=== PATIENT | female | born 1990 | race Hispanic/Latino ===

== ENCOUNTER 2023-07-01 06:22 | Day surgery (SDC) | payer MEDICAID ==
[2023-06-30 14:58] VITALS: BP 113/60; PULSE 72; RESP 18
[~2023-07-01] VITALS: Ht 162.6 cm; Wt 123.2 kg
[~2023-07-01 06:22] MED LIST: FAMO40TA7 PO; LISI5TAB21 PO; URSO250T12 PO
[2023-07-01 06:50] VITALS: BP 113/69; PULSE 67; RESP 17
[2023-07-01] MEDS ORDERED: PROPOFOL 10 MG/ML 20ML VIAL IV ONE ×2 (10:51)
[2023-07-01] MEDS ORDERED: LIDOCAINE PF 100MG/5ML (2%) SYRINGE 5ML ONE (10:51)
== END 2023-07-01 11:36 | disposition home or self-care (01) ==
LOC: ENDO 06:22 → DAH 06:22 → ENDO 11:36
PROVIDERS: ATTEND Surgery
DX: R12 Heartburn (principal); K31.7 Polyp of stomach and duodenum; K20.90 Esophagitis, unspecified without bleeding; I10 Essential (primary) hypertension; F41.9 Anxiety disorder, unspecified; F32.A Depression, unspecified; G47.33 Obstructive sleep apnea (adult) (pediatric); E66.01 Morbid (severe) obesity due to excess calories; E78.2 Mixed hyperlipidemia; K76.0 Fatty (change of) liver, not elsewhere classified; M15.8 Other polyosteoarthritis; N92.5 Other specified irregular menstruation; Z98.890 Other specified postprocedural states; Z72.89 Other problems related to lifestyle; Z68.42 Body mass index [BMI] 45.0-49.9, adult
CPT/HCPCS: 81025; 43239; J3490 ×3; A4620; A4215 ×2; A4223; A7002; A4222; A4221; A4663; J7030; A4606; J2001; J2704